=== PATIENT | female | born 1960 | race Caucasian/White ===

== ENCOUNTER 2019-02-08 12:56 | Emergency (ER) | payer OTHER ==
[~2019-02-08] VITALS: Ht 162.6 cm; Wt 56.2 kg
[2019-02-08 14:10] LABS: BASOPHILS # (AUTO) 0.04 x10^3/uL (0-0.1); BASOPHILS % (AUTO) 1 % (0-1); EOSINOPHILS # (AUTO) 0.08 x10^3/uL (0-0.4); EOSINOPHILS % (AUTO) 1 % (1-7); LYMPHOCYTES # (AUTO) 2.16 x10^3/uL (1-3.4); LYMPHOCYTES % (AUTO) 27 % (22-44); MD NO; MEAN CORPUSCULAR HEMOGLOBIN 31.9 pg (27.0-34.8); MEAN CORPUSCULAR VOLUME 96.5 fL (80-100); MEAN PLATELET VOLUME 8.1 fL (7.4-10.4); MONOCYTES # (AUTO) 0.49 x10^3/uL (0.2-0.8); MONOCYTES % (AUTO) 6 % (2-9); NEUTROPHILS # (AUTO) 5.21 x10^3/uL (1.8-6.8); NEUTROPHILS % (AUTO) 65 % (42-75); PLATELET COUNT 340 x10^3/uL (130-400); RED BLOOD COUNT 4.45 x10^6/uL (3.82-5.3); RED CELL DISTRIBUTION WIDTH 13.8 % (9.6-15.2)
[2019-02-08 14:15] LABS: INTERNATIONAL NORMALIZED RATIO 0.95 (0.93-1.1)
[2019-02-08 14:18] LABS: ALBUMIN 3.9 g/dL (3.4-5.0); ANION GAP 5 mmol/L (5-15); CALCIUM 9.4 mg/dL (8.5-10.1); CHLORIDE 108 mmol/L (98-107)
[2019-02-08 14:21] LABS: ALANINE AMINOTRANSFERASE 39 U/L (12-78); ALKALINE PHOSPHATASE 73 U/L (45-117); BILIRUBIN,TOTAL 0.1 mg/dL (0.2-1.0); CREATININE 0.74 mg/dL (0.55-1.02); TOTAL PROTEIN 7.5 g/dL (6.4-8.2)
--- NOTE | 2019-02-08 14:27 | NUR ---
ASSUMED CARE OF PT FROM LOBBY AT THIS TIME. PT HAVING ANKLE/BRACHIAL INDEX DONE AT BEDSIDE.
--- NOTE | 2019-02-08 14:40 | NUR ---
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 PT REPORTS NON REPRODUCIBLE CP OVER LAST TWO DAYS. PT ON MONITOR. AWAITING FURTHER ORDERS.
[2019-02-08] MEDS ORDERED: IBUP-1222 PO (14:48)
--- NOTE | 2019-02-08 15:15 | NUR ---
REPORT TO KARTHIK DIAZ.
--- NOTE | 2019-02-08 15:40 | NUR ---
REPORT FROM TONYA DIAZ. LEFT DP 1+, AND SIGNIFICANTLY COLDER THAN RIGHT LEG. PATIENT APPEARS COMFORTABLE- REPORTS PAIN AT REST AT 0/10 VSS ON MONITOR CALL GAXIOLA IN HAND/SIDE RAILS UP UPDATED ON ESTIMATED POC (PENDING US RESULTS)
--- NOTE | 2019-02-08 16:10 | NUR ---
ARCELIA FROM DR HOGAN'S OFFICE CALLED TO INFORM THAT PATIENT NOW HAS AN APPOINMNET AT 02/14/19 AT 1015AM. ED PROVIDER MADE AWARE
--- NOTE | 2019-02-08 16:30 | NUR ---
PATIENT ADVISED TO STOP SMOKING IMMEDIATELY/START STATIN ORDERED AND PAY CLOSE ATTENTION TO LEG AND TO RETURN TO THE EMERGENCY ROOM IF SXS MAINTAIN/WORSEN
[2019-02-08 16:52] VITALS: BP 136/70
== END 2019-02-08 16:55 | disposition home or self-care (01) ==
LOC: ED 15:25
DX: I70.202 Unspecified atherosclerosis of native arteries of extremities, left leg (principal); F17.200 Nicotine dependence, unspecified, uncomplicated
CPT/HCPCS: 36415; 80053; 85025; 85610; 93005; 93922; 93926; 99284

== ENCOUNTER 2019-02-18 06:14 | Day surgery (SDC) | payer OTHER ==
[~2019-02-18] VITALS: Ht 162.6 cm; Wt 56.0 kg
[~2019-02-18 06:14] MED LIST: IBUP-1222 PO
[2019-02-18] MEDS ORDERED: ESCI20TA10 PO (06:46)
[2019-02-18 06:47] VITALS: BP 122/76
[2019-02-18] MEDS ORDERED: D5%-0.45% NACL 1,000 ML IV SCH (06:51)
[2019-02-18] MEDS ORDERED: LIDOCAINE-MPF 1%, 5ML ONE (07:06)
[2019-02-18] MEDS ORDERED: MIDAZOLAM 1 MG/ML, 5ML ONE (07:15)
[2019-02-18] MEDS ORDERED: FENTANYL PF 100 MCG/2ML ONE (07:15)
[2019-02-18] MEDS ORDERED: HEPARIN 1,000 UNITS/ML, 10ML ONE (07:16)
[2019-02-18] MEDS ORDERED: NALOXONE 1 MG/ML, 2ML ONE (07:16)
[2019-02-18] MEDS ORDERED: PROTAMINE SULFATE 10 MG/ML, 25ML ONE (07:16)
[2019-02-18] MEDS ORDERED: FLUMAZENIL 0.1 MG/1 ML, 5ML ONE (07:16)
[2019-02-18] MEDS ORDERED: NITROGLYCERIN 5 MG/ML, 10ML ONE (07:16)
[2019-02-18] MEDS ORDERED: VISIPAQUE 270 MG/ML, 150ML BOTTLE ONE (07:56)
[2019-02-18] MEDS ORDERED: CLOP75TA52 PO (08:58)
[2019-02-18] MEDS ORDERED: CLOPIDOGREL 75 MG TABLET PO ONE (09:00)
== END 2019-02-18 12:35 | disposition home or self-care (01) ==
LOC: OUT 06:14
PROVIDERS: ATTEND Surgery
DX: I70.223 Atherosclerosis of native arteries of extremities with rest pain, bilateral legs (principal); E78.5 Hyperlipidemia, unspecified; F32.9 Major depressive disorder, single episode, unspecified; Z72.89 Other problems related to lifestyle; Z72.0 Tobacco use
CPT/HCPCS: 37221; 75630; 76937; 99156; 99157; C1725; C1751; C1760; C1769; C1876; C1894; J1644; J2250; J3010; Q9966; J2720; J2310